=== PATIENT | female | born 2000 | race Caucasian/White ===

== ENCOUNTER 2020-10-21 18:54 | Emergency (ER) | payer MEDICAID ==
[~2020-10-21] VITALS: Ht 157.5 cm; Wt 91.0 kg
[2020-10-21] MEDS ORDERED: IBUPROFEN 400MG TABLET PO ONE (19:15)
[2020-10-21] MEDS ORDERED: ACETAMINOPHEN 325MG TABLET PO ONE (19:15)
[2020-10-21 19:48] VITALS: BP 142/70
== END 2020-10-21 21:15 | disposition home or self-care (01) ==
LOC: ER 20:59
DX: M25.571 Pain in right ankle and joints of right foot (principal)
CPT/HCPCS: 73610; 73630; 99284